=== PATIENT | male | born 1975 | race Caucasian/White ===

== ENCOUNTER 2020-08-08 21:16 | Emergency (ER) | payer OTHER ==
[2020-08-08 21:24] VITALS: BP 127/78; PULSE 117
[2020-08-08] MEDS ORDERED: Diphtheria,Pertussis(Acell),Tetanus Vaccine 0.5 ML Syringe IM ONE (21:50)
[2020-08-08 21:51] LABS: ANION GAP 18.4 mEq/L (7-13); CHLORIDE,CL 103 mmol/L (98-107); SODIUM,NA 143 mmol/L (136-145)
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
[2020-08-08] MEDS ORDERED: Bacitracin Oint 1 GM U/D Packet TOP ONE (22:24)
== END 2020-08-08 23:05 | disposition home or self-care (01) ==
LOC: DL.ED 21:16
DX: S71.011A Laceration without foreign body, right hip, initial encounter (principal); R68.84 Jaw pain; Z23 Encounter for immunization; Z72.0 Tobacco use; Z98.890 Other specified postprocedural states; X99.1XXA Assault by knife, initial encounter
CPT/HCPCS: 36415; 70486; 80053; 80307; 82150; 83690; 83735; 85025; 85610; 90471; 90715; 99284; 99285-25

== ENCOUNTER 2020-10-21 02:09 | Emergency (ER) | payer OTHER ==
[2020-10-21 05:21] VITALS: BP 129/86; PULSE 74
[2020-10-21] MEDS ORDERED: cefTRIAXone 500 MG, Lidocaine 1% 1 ML IM ONE ×2 (05:53)
[2020-10-21] MEDS ORDERED: Doxycycline Monohydrate 100 MG Cap PO ONE (05:53)
--- NOTE | 2020-10-21 06:01 | EDM.PDOC ---
ED HPI GENERAL MEDICAL PROBLEM - General Chief Complaint: Genitourinary Problem Stated Complaint: NEED PRESCRIPTION BURNING SENSATION PRIVATE AREA Time Seen by Provider: 10/21/20 05:50 Source of Information: Reports: Patient, Provider (Dr. Saldana - called ED as she noted patient in the waiting room), RN, RN Notes Reviewed History Limitations: Reports: No Limitations - History of Present Illness INITIAL COMMENTS - FREE TEXT/NARRATIVE: Juan is a 44 y/o male who presents to the ED via personal vehicle with complaints of dysuria and penile discharge. The patient reports he was examined in the clinic yesterday afternoon for similar symptoms and was subsequently treated for acute cystitis as his UA was positive. As the patient was leaving the clinic Dr. Saldana states she brought up with possibility of STD testing, which would require an additional UA, which the patient declined. The patient reports once he got home he considered the possibility and decided he should be tested. He denies fever, shaking chills, nausea, vomiting, abdominal pain, hematuria, genital lesions, or testicular/scrotal pain. He has taken one dose of his prescribed Macrobid. Penis Pain Score (Numeric/FACES): 4 - Related Data Allergies Allergy/AdvReac Type Severity Reaction Status Date / Time No Known Allergies Allergy Verified 10/21/20 05:21 Home Meds: Home Meds . [No Known Home Meds] 08/08/20 [History] Past Medical History Cardiovascular History: Reports: None Respiratory History: Reports: None Gastrointestinal History: Reports: GERD Genitourinary History: Reports: None Musculoskeletal History: Reports: Fracture Neurological History: Reports: None Psychiatric History: Reports: None Endocrine/Metabolic History: Reports: None Hematologic History: Reports: None Immunologic History: Reports: None Oncologic (Cancer) History: Reports: None Dermatologic History: Reports: None - Infectious Disease History Infectious Disease History: Reports: Chicken Pox - Past Surgical History HEENT Surgical History: Reports: Other (See Below) Other HEENT Surgeries/Procedures: jaw surgery Social & Family History - Family History Family Medical History: No Pertinent Family History - Tobacco Use Tobacco Use Status *Q: Never Tobacco User - Caffeine Use Caffeine Use: Reports: Coffee - Alcohol Use Date of Last Drink: 10/19/20 - Recreational Drug Use Recreational Drug Use: Yes Drug Use in Last 12 Months: Yes Recreational Drug Type: Reports: Marijuana/Hashish Recreational Drug Use Frequency: Daily ED ROS GENERAL - Review of Systems Review Of Systems: Comprehensive ROS is negative, except as noted in HPI. ED EXAM, RENAL/ - Physical Exam Exam: See Below Exam Limited By: No Limitations General Appearance: Alert, No Apparent Distress Eye Exam: Bilateral Eye: EOMI, Normal Inspection, PERRL (3mm) Throat/Mouth: Normal Inspection, Normal Oropharynx, Normal Voice, No Airway Compromise Head: Atraumatic, Normocephalic Respiratory/Chest: No Respiratory Distress, Lungs Clear, Normal Breath Sounds, No Accessory Muscle Use, Chest Non-Tender Cardiovascular: Normal Peripheral Pulses, Regular Rate, Rhythm, No Edema, No Gallop, No JVD, No Murmur, No Rub GI/Abdominal: Normal Bowel Sounds, Soft, Non-Tender, No Distention, No Mass, Pelvis Stable (Male) Exam: No Hernia, Circumcised, Urethral Discharge (White discharge at meatus). No: Penile Lesions, Rash, Scrotal Swelling, Scrotum Tenderness (L), Scrotum Tenderness (R), Suprapubic Fullness, Testicular Tenderness (L), Testicular Tenderness (R) Rectal (Males) Exam: Normal Exam Back Exam: Normal Inspection, Full Range of Motion. No: CVA Tenderness (L), CVA Tenderness (R) Extremities: Normal Inspection, Normal Range of Motion, Non-Tender, No Pedal Edema, Normal Capillary Refill Neurological: Alert, Oriented, CN II-XII Intact, Normal Cognition, Normal Gait, No Motor/Sensory Deficits Psychiatric: Normal Affect, Normal Mood Skin Exam: Warm, Dry, Intact, Normal Color, No Rash. No: Ecchymosis, Erythema, Jaundice, Mottled, Pallor, Petechiae Course - Vital Signs Last Recorded V/S: Last Vital Signs Temp 96.9 F 10/21/20 05:11 Pulse 74 10/21/20 05:11 Resp 17 10/21/20 05:11 BP 129/86 10/21/20 05:11 Pulse Ox 98 10/21/20 05:11 - Orders/Labs/Meds Orders: Active Orders 24 hr Category Date Time Status STD PANEL 3 [REF] Stat Lab 10/21/20 05:22 Received Meds: Medications Discontinued Medications Generic Name Dose Route Start Last Admin Trade Name Freq PRN Reason Stop Dose Admin Ceftriaxone Sodium 500 mg/ 0 mg 10/21/20 05:53 10/21/20 06:00 Lidocaine HCl 1 ml IM 10/21/20 05:54 1 inj ONETIME ONE Administration Doxycycline Monohydrate 100 mg 10/21/20 05:53 10/21/20 05:59 Doxycycline Monohydrate 100 Mg Cap PO 10/21/20 05:54 100 mg ONETIME ONE Administration - Re-Assessments/Exams Free Text/Narrative Re-Assessment/Exam: 10/21/20 STD panel sent. Discussed lab test is a send-out and will treat empirically for common STIs in this area; patient to be notified of results via infectious disease RN. Patient treated with Rocephin and Doxycycline. Red flag signs and symptoms which would warrant reevaluation discussed. Patient verbalized understanding and agreement with the plan of care. Departure - Departure Time of Disposition: 05:58 Disposition: Home, Self-Care 01 Condition: Good Clinical Impression: Penile discharge, Possible exposure to STD, Dysuria - Discharge Information *PRESCRIPTION DRUG MONITORING PROGRAM REVIEWED*: Not Applicable *COPY OF PRESCRIPTION DRUG MONITORING REPORT IN PATIENT FRANNY: Not Applicable Instructions: Sexually Transmitted Disease, [id number] Forms: ED Department Discharge Additional Instructions: Rx: doxycycline 1.) Take all of your antibiotic until gone, unless otherwise instructed by the infectious disease nurse. 2.) Continue on previously prescribed antibiotics until gone, unless otherwise instructed by infectious disease nurse. 3.) Drink plenty of water to stay hydrated and flush out your bladder/kidneys. 4.) Follow up with primary care provider with any persistent symptoms after 48 hours despite medications or worsening of symptoms. Sepsis Event Note (ED) - Evaluation Sepsis Screening Result: No Definite Risk - My Orders Last 24 Hours: My Active Orders 10/21/20 05:22 STD PANEL 3 [REF] Stat - Assessment/Plan Last 24 Hours: My Active Orders 10/21/20 05:22 STD PANEL 3 [REF] Stat
[2020-10-25 12:46] LABS: C.TRACHOMATIS BY TMA Negative (Negative); N.GONORRHOEAE BY TMA Positive (Negative)
== END 2020-10-21 06:11 | disposition home or self-care (01) ==
LOC: DL.ED 02:09
DX: R36.9 Urethral discharge, unspecified (principal); R30.0 Dysuria
CPT/HCPCS: 36415; 87491; 87563; 87591; 96372; 99283; A9270-GY; J0696

== ENCOUNTER 2021-08-13 17:30 | Emergency (ER) | payer BC, OTHER ==
[2021-08-13] MEDS ORDERED: Iopamidol 612 MG/ML 100 ML Bottle IVPUSH ONE ×2 (17:37→20:23)
[2021-08-13] MEDS ORDERED: HYDROmorphone 1 MG/ML Syringe ONE (17:49)
[2021-08-13] MEDS ORDERED: Ondansetron 4 MG/2 ML SDV ONE (17:49)
[2021-08-13] MEDS ORDERED: Ondansetron 4 MG/2 ML SDV IVPUSH ONE (17:51)
[2021-08-13] MEDS ORDERED: HYDROmorphone 1 MG/ML Syringe IVPUSH ONE (17:51)
[2021-08-13 18:10] LABS: ANION GAP 14.5 mEq/L (7-13); CHLORIDE,CL 102 mmol/L (98-107); SODIUM,NA 142 mmol/L (136-145)
[2021-08-13 18:21] LABS: PTT,PARTIAL THROMBOPLSTIN TIME 21.6 SEC (22.0-34.0)
[2021-08-13] MEDS ORDERED: Acetaminophen 325 MG Tab PO ONE (19:36)
[2021-08-13] MEDS ORDERED: Lidocaine 1% 30 ML SDV INJECT ONE (19:36)
[2021-08-13] MEDS ORDERED: Doxycycline Monohydrate 100 MG Cap PO ONE (19:39)
[2021-08-13 21:34] VITALS: BP 140/83; PULSE 84
== END 2021-08-13 21:29 | disposition home or self-care (01) ==
LOC: DL.ED 17:30
DX: S31.113A Laceration without foreign body of abdominal wall, right lower quadrant without penetration into peritoneal cavity, initial encounter (principal); Y04.0XXA Assault by unarmed brawl or fight, initial encounter; Y92.000 Kitchen of unspecified non-institutional (private) residence as the place of occurrence of the external cause
CPT/HCPCS: 12001; 36415; 74177; 76705; 80053; 85025; 85610; 85730; 96374; 96375; 99284; 99284-25; A9270-GY; J1170; J2405

== ENCOUNTER 2022-05-17 21:59 | Emergency (ER) | payer BC, OTHER ==
[2022-05-17 23:24] VITALS: BP 130/76; PULSE 66
[2022-05-17 23:46] LABS: ANION GAP 12.7 mEq/L (7-13)
[2022-05-18] MEDS ORDERED: Lidocaine 2% Jelly 10 ML Urojet MUCMEM ONE (00:44)
[2022-05-18] MEDS ORDERED: Ciprofloxacin 500 MG Tab PO ONE ×2 (00:44→00:49)
== END 2022-05-18 01:04 | disposition home or self-care (01) ==
LOC: DL.ED 21:59
DX: N39.0 Urinary tract infection, site not specified (principal); N34.1 Nonspecific urethritis; Z90.49 Acquired absence of other specified parts of digestive tract
CPT/HCPCS: 36415; 80053; 81001; 85025; 87086; 99283; A9270; 81003

== ENCOUNTER 2022-05-31 17:43 | Emergency (ER) | payer BC ==
[2022-05-31] MEDS ORDERED: cefTRIAXone 500 MG Vial IM ONE (18:40)
[2022-05-31] MEDS ORDERED: metroNIDAZOLE 250 MG Tab PO ONE (18:48)
[2022-05-31] MEDS ORDERED: Lidocaine 1% 10 ML MDV INJECT ONE (18:49)
[2022-05-31 19:09] VITALS: BP 138/84; PULSE 86
[2022-06-05 13:46] LABS: C.TRACHOMATIS BY TMA Negative (Negative); N.GONORRHOEAE BY TMA Negative (Negative)
== END 2022-05-31 19:07 | disposition home or self-care (01) ==
LOC: DL.ED 17:43
DX: Z20.2 Contact with and (suspected) exposure to infections with a predominantly sexual mode of transmission (principal)
CPT/HCPCS: 81001; 87086; 87491; 87563; 87591; 96372; 99282; A9270; J0696; 36415

== ENCOUNTER 2022-06-09 17:21 | Emergency (ER) | payer BC, OTHER ==
[2022-06-09 17:31] VITALS: BP 159/88; PULSE 89
[2022-06-09] MEDS ORDERED: cefTRIAXone 1 GM, Lidocaine 1% 2.1 ML IM ONE ×2 (18:12)
[2022-06-09] MEDS ORDERED: Azithromycin 250 MG Tab PO ONE (18:13)
[2022-06-11 12:46] LABS: C.TRACHOMATIS BY TMA Negative (Negative); N.GONORRHOEAE BY TMA Negative (Negative)
== END 2022-06-09 18:55 | disposition home or self-care (01) ==
LOC: DL.ED 17:21
DX: N34.1 Nonspecific urethritis (principal)
CPT/HCPCS: 81001; 87086; 87491; 87591; 96372; 99284; A9270; J0696; J3490